=== PATIENT | female | born 1985 | race Caucasian/White ===

== ENCOUNTER 2021-01-02 20:21 | Emergency (ER) | payer SELFPAY ==
--- NOTE | 2021-01-02 20:27 | NUR ---
PT LEFT WITHOUT BEING TRIAGED. PER EMT FROM [id number] PT DECIDED TO LEAVE AND DID NOT WANNA BE SEEN BY A
== END 2021-01-02 20:31 | disposition left against medical advice (07) ==
LOC: ER 20:21
DX: Z02.89 Encounter for other administrative examinations (principal); Z53.21 Procedure and treatment not carried out due to patient leaving prior to being seen by health care provider